=== PATIENT | female | born 1980 | race Caucasian/White ===

== ENCOUNTER 2021-09-06 10:48 | Emergency (ER) | payer BC, MEDICAID ==
[~2021-09-06] VITALS: Ht 152.4 cm; Wt 89.8 kg
[~2021-09-06 10:48] MED LIST: LEVO50CA2
[2021-09-06] MEDS ORDERED: ONDANSETRON HCL 4 MG/2 ML VIAL IV ONE ×2 (12:00→20:45)
[2021-09-06] MEDS ORDERED: SODIUM CHLORIDE 0.9% 1,000 ML IV ONE (12:00)
[2021-09-06 14:24] LABS: Basophils # (auto) 0 10 ^3/uL (0-0.2); Basophils % (auto) 0.5 % (0.0-2.0); Eosinophils # (auto) 0.1 10 ^3/uL (0-0.8); Hematocrit 43.9 % (36.0-46.0); Hemoglobin 14.9 g/dL (12.2-16.2); Mean Corpuscular Hemoglobin 27.8 pg (28.0-32.0); Mean Corpuscular Hgb Conc. 33.8 g/dL (32.0-36.0); Mean Corpuscular Volume 82.1 fL (80.0-100.0); Monocytes # (auto) 0.5 10 ^3/uL (0-1.3); Monocytes % (auto) 5.2 % (0.0-12.0); Neutrophils # (auto) 6.6 10 ^3/uL (1.6-8.6); Neutrophils % (auto) 71.3 % (37.0-80.0); Red Blood Cells 5.35 10^6/uL (4.0-5.20); Red Cell Distribution Width 15.2 % (11.8-14.3); White Blood Cell 9.3 10^3/uL (4.4-10.8)
[2021-09-06 14:44] LABS: Albumin 4.4 g/dL (3.4-5.0); Calcium 10.3 mg/dL (8.5-10.1); Potassium 3.6 mmol/L (3.5-5.1)
[2021-09-06 14:47] LABS: BUN/Creatinine Ratio 24.7; Bilirubin, Total 0.5 mg/dL (0.2-1.0); Total Protein 9.3 g/dL (6.4-8.2)
[2021-09-06] MEDS ORDERED: ONDA-144 PO (18:03)
[2021-09-06 20:57] VITALS: BP 142/73
== END 2021-09-06 18:40 | disposition home or self-care (01) ==
LOC: ER 10:48
DX: R11.2 Nausea with vomiting, unspecified (principal); R10.9 Unspecified abdominal pain; I10 Essential (primary) hypertension; Z90.49 Acquired absence of other specified parts of digestive tract
CPT/HCPCS: 36415; 74176; 80053; 83605; 83690; 84702; 85025; 96361; 96374; 96376; 99284; J2405; J7030